=== PATIENT | female | born 1985 | race Caucasian/White ===

== ENCOUNTER 2019-07-12 08:57 | Inpatient (IN) | payer MEDICAID ==
[~2019-07-12] VITALS: Ht 172.7 cm; Wt 115.2 kg
[2019-07-12] MEDS: LACTATED RINGERS 1,000 ML IV SCH ×2 (02:50→09:50)
[2019-07-12] MEDS ORDERED: INSU100I28 SQ (09:48)
[2019-07-12] MEDS ORDERED: OXYTOCIN 10 UNITS/ML 1ML ONE (09:54)
[2019-07-12] MEDS ORDERED: MORPHINE SULFATE/PF 1MG/ML 10ML AMP ONE (09:54)
[2019-07-12] MEDS ORDERED: FENTANYL CITRATE/PF 50MCG/ML 2ML VIAL ONE (09:54)
[2019-07-12] MEDS ORDERED: ONDANSETRON HCL 4MG/2ML INJ ONE (09:55)
[2019-07-12] MEDS ORDERED: GLYCOPYRROLATE 0.2 MG/ML 2ML VIAL ONE (09:55)
[2019-07-12] MEDS ORDERED: METOCLOPRAMIDE HCL 10MG/2ML VIAL ONE (09:55)
[2019-07-12] MEDS ORDERED: PHENYLEPHRINE HCL 10 MG/ML 1ML (IV VIAL) IV ONE (09:55)
[2019-07-12] MEDS ORDERED: CEFAZOLIN SODIUM 1000MG/VIAL ONE (09:55)
[2019-07-12] MEDS ORDERED: EPHEDRINE SULFATE 50MG/ML VIAL ONE (09:55)
[2019-07-12] MEDS ORDERED: SODIUM CHLORIDE 0.9% 10ML VIAL ONE (09:57)
[2019-07-12 10:21] LABS: BASOPHILS % 0.4 % (0.0-2.0); EOSINOPHILS % 1.8 % (0.0-5.0); HEMATOCRIT. 38.9 % (36.0-48.0); HEMOGLOBIN. 13.1 g/dL (12.0-16.0); LYMPHOCYTES % 18.1 % (20.0-50.0); MEAN CORPUSCULAR HEMOGLOBIN 27.8 pg (28.0-32.0); MEAN CORPUSCULAR VOLUME 82.7 fL (81.0-99.0); MEAN PLATELET VOLUME 11.4 fl (7.4-10.4); MONOCYTES % 6.1 % (2.0-8.0); NEUTROPHILS % 73.6 % (40.0-76.0); PLATELET 121 x1000/uL (130-400); RED BLOOD CELL COUNT 4.71 mill/uL (4.2-5.4); RED CELL DISTRIBUTION WIDTH 15.3 % (11.6-14.6)
[2019-07-12 10:30] LABS: INR 0.9; PARTIAL THROMBOPLASTIN TIME 25.9 sec (23.4-31.0); PROTHROMBIN TIME 9.7 sec (9.6-11.0)
[2019-07-12 10:31] LABS: CHLORIDE 111 mEq/L (98-107)
[2019-07-12] MEDS ORDERED: CITRIC ACID/SODIUM CITRATE SOLN 30ML UDC PO NR (10:39)
[2019-07-12] MEDS ORDERED: MISOPROSTOL 200MCG TABLET VG SCH (10:41)
[2019-07-12] MEDS ORDERED: DEXT 5%/LR + PITOCIN 20UNITS/L 1,000 ML IV SCH (10:42)
[2019-07-12] MEDS ORDERED: DIPHENHYDRAMINE 50MG/ML VIAL ONE (11:15)
[2019-07-12] MEDS ORDERED: KETOROLAC 60MG/2ML VIAL IM ONE (11:15)
[2019-07-12] MEDS ORDERED: OXYTOCIN 20 UNITS in LACTATED RINGERS 1,000 ML IV SCH (11:15)
[2019-07-12 11:34] LABS: HEPATITIS B SURFACE ANTIGEN NEGATIVE
[2019-07-12] MEDS ORDERED: HEMORRHOIDAL SUPP PR PRN (11:45)
[2019-07-12] MEDS ORDERED: LANOLIN OINT 7GM TUBE TOP PRN (11:45)
[2019-07-12] MEDS ORDERED: BISACODYL 10MG SUPP PR PRN (11:45)
[2019-07-12] MEDS ORDERED: DIPHENHYDRAMINE 25MG CAPSULE PO PRN (11:45)
[2019-07-12] MEDS ORDERED: ONDANSETRON HCL 4MG/2ML INJ IV PRN ×2 (11:45→12:15)
[2019-07-12] MEDS ORDERED: IBUPROFEN 800MG TABLET PO PRN (11:45)
[2019-07-12] MEDS ORDERED: KETOROLAC 30MG/ML VIAL IV SCH (12:15)
[2019-07-12] MEDS ORDERED: NALOXONE HCL 0.4 MG/ML 1ML VIAL IV PRN (12:15)
[2019-07-12] MEDS ORDERED: DIPHENHYDRAMINE 50MG/ML VIAL IV PRN (12:15)
[2019-07-12] MEDS ORDERED: BUTORPHANOL TARTRATE 2 MG/ML VIAL IV PRN (12:15)
[2019-07-12 16:00] LABS: CLARITY URINE CLEAR (CLEAR); COLOR URINE YELLOW (YELLOW); KETONES URINE 1+ (NEGATIVE); LEUKOCYTE ESTERASE URINE NEGATIVE (NEGATIVE); NITRITE URINE NEGATIVE (NEGATIVE); OCCULT BLOOD URINE NEGATIVE (NEGATIVE); PH URINE 6.5 (4.5-8.0); PROTEIN URINE NEGATIVE (NEGATIVE); SPECIFIC GRAVITY URINE 1.009 (1.005-1.030); UROBILINOGEN URINE 0.2 E.U./dL (0.2-1.0)
[2019-07-12 16:17] LABS: *AMPHETAMINES SCREEN URINE NEGATIVE (NEGATIVE); *BARBITURATES SCREEN URINE NEGATIVE (NEGATIVE); *BENZODIAZEPINES SCREEN URINE NEGATIVE (NEGATIVE); *COCAINE SCREEN URINE NEGATIVE (NEGATIVE)
[2019-07-12 16:18] LABS: CANNABINOID URINE SCREEN NEGATIVE (NEGATIVE); METHADONE URINE SCREEN NEGATIVE (NEGATIVE); OPIATES URINE SCREEN NEGATIVE (NEGATIVE); PHENCYCLIDINE URINE SCREEN NEGATIVE (NEGATIVE)
[2019-07-12 16:20] VITALS: BP 115/65
[2019-07-12] MEDS ORDERED: DEXTROSE 50% WATER 50ML SYRINGE IV PRN ×2 (17:45→18:00)
[2019-07-12 18:00] VITALS: BP 121/54
[2019-07-12] MEDS ORDERED: INSULIN LISPRO 100 UNITS/ML SUBCUT SCH ×2 (18:00→21:00)
[2019-07-12] MEDS ORDERED: BLOOD SUGAR DIAGNOSTIC STRIP TEST SCH ×2 (18:00→21:00)
[2019-07-12 19:10] VITALS: BP 112/58
[2019-07-12] MEDS: MAGNESIUM/ALUMINUM HYDROXIDE/SIMETHICONE 30ML UDC PO SCH (21:26)
[2019-07-12] MEDS: DOCUSATE SODIUM 100MG CAPSULE PO SCH (21:26)
[2019-07-13] VITALS: BP 112/68
[2019-07-13 04:00] VITALS: BP 107/62
[2019-07-13 07:30] VITALS: BP 166/74
[2019-07-13 07:42] LABS: BASOPHILS % 0.3 % (0.0-2.0); EOSINOPHILS % 0.9 % (0.0-5.0); HEMATOCRIT. 32.3 % (36.0-48.0); LYMPHOCYTES % 17.2 % (20.0-50.0); MEAN CORPUSCULAR HEMOGLOBIN 28.1 pg (28.0-32.0); MEAN CORPUSCULAR VOLUME 82.3 fL (81.0-99.0); MEAN PLATELET VOLUME 11.2 fl (7.4-10.4); MONOCYTES % 7.6 % (2.0-8.0); PLATELET 105 x1000/uL (130-400); RED BLOOD CELL COUNT 3.93 mill/uL (4.2-5.4); RED CELL DISTRIBUTION WIDTH 15.1 % (11.6-14.6)
[2019-07-13] MEDS ORDERED: BLOOD SUGAR DIAGNOSTIC STRIP TEST SCH (08:00)
[2019-07-13] MEDS: MAGNESIUM/ALUMINUM HYDROXIDE/SIMETHICONE 30ML UDC PO SCH ×4 (08:36→20:30)
[2019-07-13] MEDS ORDERED: PRENATAL VIT/FE FUMARATE/FA TABLET PO SCH (09:00)
[2019-07-13] MEDS: INSULIN LISPRO 100 UNITS/ML SUBCUT SCH (10:41)
[2019-07-13] MEDS: ACETAMINOPHEN WITH CODEINE 300/30MG TABLET PO PRN ×2 (13:19→17:59)
[2019-07-13 15:51] VITALS: BP 102/60
[2019-07-13 20:00] VITALS: BP 111/64
[2019-07-13] MEDS: DOCUSATE SODIUM 100MG CAPSULE PO SCH (20:31)
[2019-07-14] VITALS: BP 107/67
[2019-07-14] MEDS: ACETAMINOPHEN WITH CODEINE 300/30MG TABLET PO PRN ×3 (00:44→22:53)
[2019-07-14 08:00] VITALS: BP 106/69
[2019-07-14] MEDS: INSULIN LISPRO 100 UNITS/ML SUBCUT SCH ×2 (10:24→16:00)
[2019-07-14 17:10] VITALS: BP 122/67
[2019-07-14 20:00] VITALS: BP 115/65
[2019-07-14] MEDS: DOCUSATE SODIUM 100MG CAPSULE PO SCH (22:45)
[2019-07-14] MEDS: MAGNESIUM/ALUMINUM HYDROXIDE/SIMETHICONE 30ML UDC PO SCH (22:46)
[2019-07-15] MEDS ORDERED: IBUP-2030 PO (01:29)
[2019-07-15 06:00] VITALS: BP 105/69
[2019-07-15 07:30] VITALS: BP 109/62
== END 2019-07-15 12:05 | disposition home or self-care (01) | DRG 540 ==
LOC: 8 EST LDRP 08:57 → OBSVTOIN 08:57 → 8EST 16:00
PROVIDERS: ADMIT Obstetrics & Gynecology; ATTEND Obstetrics & Gynecology
PROC: 10D00Z1 Extraction of Products of Conception, Low, Open Approach (ICD-10-PCS; principal; 2019-07-12)
PROC: 0UB70ZZ Excision of Bilateral Fallopian Tubes, Open Approach (ICD-10-PCS; 2019-07-12)
DX: O42.913 Preterm premature rupture of membranes, unspecified as to length of time between rupture and onset of labor, third trimester (principal); O24.92 Unspecified diabetes mellitus in childbirth; O34.211 Maternal care for low transverse scar from previous cesarean delivery; Z37.0 Single live birth; O99.214 Obesity complicating childbirth; Z79.4 Long term (current) use of insulin; Z3A.36 36 weeks gestation of pregnancy; Z30.2 Encounter for sterilization
CPT/HCPCS: 36415; 80053; 80305; 81003; 82962; 83525; 85025; 86592; 86703; 86762; 86850; 86900; 87340; 88302; 88307; 99281; G0378; J0690; J1200; J1815; J1885; J2274; J2370; J2405; J2765; J3010; J3490; J7120; A4315